=== PATIENT | female | born 1970 | race Hispanic/Latino ===

== ENCOUNTER → 2023-10-10 | Outpatient (CLI) | payer OTHER ==
[~2023-10-10] MED LIST: IOHEXOL-350 75 ML VIAL IV ONE
== END | disposition home or self-care (01) ==
LOC: RAH 11:15
PROVIDERS: ATTEND Surgery Surgical Oncology
DX: C78.7 Secondary malignant neoplasm of liver and intrahepatic bile duct (principal); K76.89 Other specified diseases of liver; Z93.3 Colostomy status; I70.0 Atherosclerosis of aorta; K44.9 Diaphragmatic hernia without obstruction or gangrene; M47.815 Spondylosis without myelopathy or radiculopathy, thoracolumbar region
CPT/HCPCS: 74178; Q9967

== ENCOUNTER → 2024-04-20 | Outpatient (CLI) | payer OTHER ==
[~2024-04-20] MED LIST changes: +GADOTERATE MEGLUMINE 10 MMOL/20 ML VIAL IV ONE; -IOHEXOL-350 75 ML VIAL IV ONE
--- NOTE | 2024-04-20 10:53 | HMCIMG ---
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 Patient was given 15 cc of Clariscan through intravenous route. FINDINGS: No pleural effusion is seen bilaterally. Liver measured 12.4 cm. Spleen is enlarged measuring 15 cm. Multiple liver nodules are again seen with the largest in the right hepatic lobe measuring 5.1 cm and medial segment of the left hepatic lobe measuring 4 cm. These were present on previous study. Accurate comparison can't be made. Irregular liver contour is seen consistent with liver cirrhosis. Adrenal glands and pancreas are unremarkable. Gallbladder is not well visualized. Common duct is prominent measuring 10.4 mm. There is left upper pole renal cyst measuring 16 mm. Both kidneys are seen without hydronephrosis. There is no evidence of adenopathy or ascites. IMPRESSION: 1. Liver masses suggestive of liver metastases also seen on previous study. Accurate comparison can't be made. Common duct is dilated. Gallbladder is not visualized. There is no evidence of adenopathy or ascites.
== END | disposition home or self-care (01) ==
LOC: RAH 08:37
PROVIDERS: ATTEND Surgery Surgical Oncology
DX: C78.7 Secondary malignant neoplasm of liver and intrahepatic bile duct (principal); N28.1 Cyst of kidney, acquired; R16.1 Splenomegaly, not elsewhere classified
CPT/HCPCS: 74183; A9575